=== PATIENT | female | born 1995 | race African-American/Black ===

== ENCOUNTER 2017-09-19 08:06 | Emergency (ER) | payer MEDICAID ==
[~2017-09-19] VITALS: Ht 172.7 cm; Wt 73.0 kg
[2017-09-19] MEDS ORDERED: TETANUS, DIPHTHERIA, PERTUSSIS VAC/PF 0.5ML (>7YR OLD) IM ONE (10:30)
[2017-09-19] MEDS ORDERED: HYDROCODONE/ACETAMINOPHEN 5/325MG TABLET PO ONE (10:30)
[2017-09-19] MEDS ORDERED: BACITRACIN ZINC 15GM TUBE TOP ONE (13:00)
[2017-09-19] MEDS ORDERED: IBUPROFEN 600MG TABLET PO ONE (13:00)
[2017-09-19 13:30] VITALS: BP 99/66
== END 2017-09-19 13:35 | disposition home or self-care (01) ==
LOC: ER 08:06
DX: S61.210A Laceration without foreign body of right index finger without damage to nail, initial encounter (principal); W23.0XXA Caught, crushed, jammed, or pinched between moving objects, initial encounter; Y93.89 Activity, other specified; Y92.89 Other specified places as the place of occurrence of the external cause; Y99.8 Other external cause status
CPT/HCPCS: 29130; 73140; 81025; 90471; 90715; 99284

== ENCOUNTER 2018-01-12 14:01 | Emergency (ER) | payer MEDICAID ==
[~2018-01-12] VITALS: Ht 167.6 cm; Wt 78.2 kg
[2018-01-12 15:10] LABS: CHLORIDE 104 mEq/L (98-107)
[2018-01-12 15:15] LABS: BASOPHILS % 1.2 % (0.0-2.0); EOSINOPHILS % 2.8 % (0.0-5.0); HEMATOCRIT. 39.2 % (36.0-48.0); HEMOGLOBIN. 13.1 g/dL (12.0-16.0); LYMPHOCYTES % 39.1 % (20.0-50.0); MEAN CORPUSCULAR HEMOGLOBIN 27.6 pg (28.0-32.0); MEAN CORPUSCULAR VOLUME 82.6 fL (81.0-99.0); MEAN PLATELET VOLUME 8.8 fl (7.4-10.4); MONOCYTES % 7.5 % (2.0-8.0); NEUTROPHILS % 49.4 % (40.0-76.0); PLATELET 186 x1000/uL (130-400); RED BLOOD CELL COUNT 4.75 mill/uL (4.2-5.4); RED CELL DISTRIBUTION WIDTH 12.8 % (11.6-14.6)
[2018-01-12] MEDS ORDERED: ONDANSETRON HCL 4MG/2ML VIAL IV STA (16:08)
[2018-01-12] MEDS ORDERED: SODIUM CHLORIDE 0.9% 1,000 ML IV ONE (16:08)
[2018-01-12 16:16] LABS: CLARITY URINE CLEAR (CLEAR); COLOR URINE YELLOW (YELLOW); KETONES URINE NEGATIVE (NEGATIVE); LEUKOCYTE ESTERASE URINE NEGATIVE (NEGATIVE); NITRITE URINE NEGATIVE (NEGATIVE); OCCULT BLOOD URINE NEGATIVE (NEGATIVE); PH URINE 8.5 (4.5-8.0); PROTEIN URINE NEGATIVE (NEGATIVE); SPECIFIC GRAVITY URINE 1.014 (1.005-1.030)
[2018-01-12 17:09] LABS: INR 1.1; PROTHROMBIN TIME 11.9 sec (9.4-11.6)
[2018-01-12 17:12] LABS: HCG SCREEN NEGATIVE
[2018-01-12 18:32] VITALS: BP 107/52
[2018-01-12] MEDS ORDERED: IOHEXOL-300 100 ML BOTTLE ONE (19:38)
== END 2018-01-12 18:34 | disposition home or self-care (01) ==
LOC: ER 14:01
DX: R10.9 Unspecified abdominal pain (principal); R79.89 Other specified abnormal findings of blood chemistry; R11.2 Nausea with vomiting, unspecified; R19.7 Diarrhea, unspecified
CPT/HCPCS: 36415; 74177; 76830; 76856; 80053; 81003; 83605; 83690; 84703; 85025; 85610; 96361; 96374; 99285; J2405; J7030; Q9967; Z7610

== ENCOUNTER 2024-01-16 08:16 | Emergency (ER) | payer MEDICAID, OTHER ==
[~2024-01-16] VITALS: Ht 172.7 cm; Wt 80.0 kg
[2024-01-16 08:25] VITALS: O2SAT 100
[2024-01-16] MEDS: IBUPROFEN 600MG TABLET PO STA (09:26)
[2024-01-16] MEDS ORDERED: NAPR-681 PO (09:52)
[2024-01-16] MEDS ORDERED: AMOX-494 PO (09:52)
[2024-01-16] MEDS ORDERED: D-ME473S50 PO (09:52)
[2024-01-16 10:11] VITALS: BP 123/84; PULSE 81; RESP 16; TEMP 36.55848; O2SAT 100
== END 2024-01-16 10:17 | disposition home or self-care (01) ==
LOC: ER 08:16
DX: J02.9 Acute pharyngitis, unspecified (principal); R05.9 Cough, unspecified; Z20.822 Contact with and (suspected) exposure to COVID-19
CPT/HCPCS: 87070; 87426; 87430; 99283

== ENCOUNTER 2025-04-20 18:57 | Emergency (ER) | payer MEDICAID, OTHER ==
[~2025-04-20 18:57] MED LIST: AMOX-494 PO; D-ME473S50 PO; NAPR-681 PO
[2025-04-20 21:20] VITALS: BP 106/65; PULSE 93; RESP 17; TEMP 36.8; O2SAT 98
[2025-04-20 21:26] LABS: BASOPHILS % 1.0 % (0.0-2.0); EOSINOPHILS % 2.2 % (0.0-5.0); HEMATOCRIT. 36.5 % (36.0-48.0); HEMOGLOBIN. 12.2 g/dL (12.0-16.0); LYMPHOCYTES % 32.1 % (20.0-50.0); MEAN PLATELET VOLUME 8.7 fl (7.4-10.4); MONOCYTES % 7.5 % (2.0-8.0); NEUTROPHILS % 57.2 % (40.0-76.0); PLATELET 253 x1000/uL (130-400); RED BLOOD CELL COUNT 4.48 mill/uL (4.2-5.4); RED CELL DISTRIBUTION WIDTH 13.3 % (11.6-14.6)
[2025-04-20 21:38] LABS: INR 1.0
[2025-04-20 21:42] LABS: CREATININE 0.7 mg/dL (0.6-1.0); UREA NITROGEN BLOOD < 5 mg/dL (9-23)
[2025-04-20 21:43] LABS: B-HCG QUANTITATIVE 61 mIU/mL (<6)
[2025-04-20 21:59] LABS: HCG SCREEN POSITIVE
[2025-04-20 22:12] LABS: CLARITY URINE HAZY (CLEAR); COLOR URINE YELLOW (YELLOW); GLUCOSE URINE NEGATIVE (NEGATIVE); KETONES URINE NEGATIVE (NEGATIVE); LEUKOCYTE ESTERASE URINE NEGATIVE (NEGATIVE); NITRITE URINE NEGATIVE (NEGATIVE); OCCULT BLOOD URINE 3+ (NEGATIVE); PH URINE 8.0 (4.5-8.0); PROTEIN URINE TRACE (NEGATIVE); SPECIFIC GRAVITY URINE 1.015 (1.005-1.030); UROBILINOGEN URINE 0.2 E.U./dL (0.2-1.0)
[2025-04-20 22:22] LABS: BACTERIA URINE TRACE; RBC URINE TNTC /hpf (0-2); SQUAMOUS EPITHELIAL CELL URINE FEW /lpf (RARE/1+); WBC URINE 0-2 /hpf (0-2)
== END 2025-04-20 22:02 | disposition home or self-care (01) ==
LOC: ER 18:57 → CMPBEDREQ 23:08
DX: O20.9 Hemorrhage in early pregnancy, unspecified (principal); R10.20 Pelvic and perineal pain unspecified side; Z3A.01 Less than 8 weeks gestation of pregnancy
CPT/HCPCS: 80048; 81003; 81025; 84703; 84702; 85025; 85610; 85730; 86850; 86900; 86901; 36415; 76801; 76817; 99284; Z7610; A4606